=== PATIENT | female | born 1985 | race Caucasian/White ===

== ENCOUNTER 2018-09-24 09:05 | Emergency (ER) | payer OTHER, MEDICAID, SELFPAY ==
[2018-09-24 09:32] VITALS: BP 147/85; PULSE 84; RESP 18; TEMP 36.1; O2SAT 96; BMI 56.5
--- NOTE | 2018-09-24 10:35 | DI.CT.S_ITS ---
PROCEDURE: CT KIDNEY URETER BLADDER (KUB) INDICATIONS: abd pain TECHNIQUE: Noncontrast 5 mm thick sections acquired from the diaphragms to the symphysis. 5 mm thick coronal and sagittal reformats were then performed. For radiation dose reduction, the following was used: automated exposure control, adjustment of mA and/or kV according to patient size. COMPARISON: None. FINDINGS: Image quality: Excellent. Lung bases: Lung bases are clear. Heart size is normal. Urinary system: Both kidneys are normal in size. Faint 1-2 mm calcifications are seen in the region of midpole left kidney which may represent tiny nonobstructing stones. Small left peripelvic cyst is seen. No hydronephrosis or perinephric fat stranding. Both ureters appear non-dilated throughout their expected courses. Bladder wall thickness is normal; no calcified bladder stones. Other solid organs: Liver is normal in size. Tiny 4 mm hypodense area is noted in lateral aspect of right hepatic dome. Mild hepatic steatosis is seen. Gallbladder is within normal limits. Pancreas is normal in contours. Spleen is normal in size. No adrenal nodules. Peritoneum and bowel: Unenhanced bowel loops demonstrate normal wall thickness and caliber. No free fluid or air. Nodes and vessels: No retroperitoneal or mesenteric adenopathy by size criteria. Aorta and inferior vena cava are normal in caliber. Abdominal wall: No ventral hernias. Pelvis: No free pelvic fluid. No inguinal hernias or adenopathy. Bones: No suspicious bony lesions. No vertebral body compression fractures. IMPRESSION: 1. No obstructing renal stone hydronephrosis. Faint 1-2 mm tiny nonobstructing stones are seen in mid pole left kidney. Small left peripelvic renal cyst. Normal appearing urinary bladder and visualized bilateral ureters. 2. No bowel obstruction. No free fluid or free air. No evidence of acute appendicitis. 3. Mild hepatic steatosis. Tiny 4 mm hypodensity involving right hepatic dome and is too small to characterize and likely represent benign cyst. Dictated by: Jin Elena M.D. on 09/24/2018 at 11:01 Approved by: Jin Elena M.D. on 09/24/2018 at 11:05
[2018-09-24 11:09] VITALS: BP 127/86; PULSE 74; RESP 18; O2SAT 100
--- NOTE | 2018-09-24 12:51 | ED.FEMALEGU ---
HPI - Female Genitourinary <KAMALJIT Spivey - Last Filed: 09/24/18 18:22> General Chief complaint: Urogenital-Female Stated complaint: severe lower back pain that wraps to groin Time Seen by Provider: 09/24/18 12:32 Source: patient Mode of arrival: ambulatory Limitations: no limitations History of Present Illness HPI Narrative: Patient presents with chief complaint of lower abdominal pain on her left side that radiates from her back around to her left groin. She states she has a history of kidney stones, and feels like this might be a kidney stone. She denies any nausea, vomiting, diarrhea, fevers, dysuria urgency or frequency. She states she did pass a stone upon arrival to the emergency department. She that burned when she Peed out the stone. She denies any other abdominal pain or cramping. She denies any shortness of breath or chest pain. She denies any vaginal complaints including vaginal discharge. Related Data Home Medications Medication Instructions Recorded Confirmed duloxetine 1 cap PO QPM 09/24/18 09/24/18 ibuprofen 1 dose PO PRN PRN 09/24/18 09/24/18 methocarbamol 2 tab PO DAILY 09/24/18 09/24/18 Previous Rx's Medication Instructions Recorded acetaminophen-codeine 1 tab PO Q4-6H PRN #10 tab 09/24/18 ondansetron HCl 4 mg PO TID-QID PRN #20 tab 09/24/18 Allergies Allergy/AdvReac Type Severity Reaction Status Date / Time shellfish derived Allergy Verified 09/24/18 09:32 Review of Systems <KAMALJIT Spivey - Last Filed: 09/24/18 18:22> Review of Systems GENERAL: Denies chills, fatigue, malaise, fever, sweats. HEENT: Denies sinus pain, ear pain, sore throat, difficulty swallowing, dizziness. RESPIRATORY: Denies dyspnea, cough, wheezing, hemoptysis, sputum. CARDIOVASCULAR: Denies chest pain, palpitations, orthopnea, edema, GASTROINTESTINAL: see HPI : See HPI MUSCULOSKELETAL: denies weakness, joint pain, or bony pain SKIN: Denies rash, skin lesions, or other NEUROLOGIC: Denies weakness, headache, numbness, change in speech, confusion, seizures, incoordination. PSYCHIATRIC: No concerning psychosocial issues. 12 point review of systems is negative except for those stated above Exam <KAMALJIT Spivey - Last Filed: 09/24/18 18:22> Narrative Exam Narrative: GENERAL: Morbidly obese female lying on her side. HEAD: Atraumatic. Normocephalic. No temporal or scalp tenderness. EYES: Pupils equal round and reactive. Extraocular motions intact. No scleral icterus. No injection or drainage. ENT: Nose without bleeding, purulent drainage or septal hematoma. Throat without erythema, tonsillar hypertrophy or exudate. Uvula midline. Airway patent. NECK: Trachea midline. No JVD or lymphadenopathy. Supple, nontender, no meningeal signs. CARDIOVASCULAR: Regular rate and rhythm without murmurs, gallops, or rubs. RESPIRATORY: Clear to auscultation. Breath sounds equal bilaterally. No wheezes, rales, or rhonchi. GASTROINTESTINAL: Abdomen obese, pain to palpation left lower quadrant., nondistended. No hepato-splenomegaly, or palpable masses. No guarding. Active bowel sounds. EXTREMITIES: No clubbing, cyanosis, or edema. No joint tenderness, effusion, or edema noted. BACK: Nontender without deformity or crepitance. CVA tenderness left flank. NEURO: AOx3. SKIN: No rash or erythema. Initial Vital Signs Initial Vital Signs: Vital Signs Temperature 97.0 F L 09/24/18 09:32 Pulse Rate 84 09/24/18 09:32 Respiratory Rate 18 09/24/18 09:32 Blood Pressure 147/85 H 09/24/18 09:32 Pulse Oximetry 96 09/24/18 09:32 <Deena Castro DO - Last Filed: 09/24/18 19:32> Initial Vital Signs Initial Vital Signs: Vital Signs Temperature 97.0 F L 09/24/18 09:32 Pulse Rate 84 09/24/18 09:32 Respiratory Rate 18 09/24/18 09:32 Blood Pressure 147/85 H 09/24/18 09:32 Pulse Oximetry 96 09/24/18 09:32 Course <KAMALJIT Spivey - Last Filed: 09/24/18 18:22> Orders Ordered: ED Orders 09/24/18 10:35 CT kidney ureter bladder (KUB) Stat 09/24/18 13:20 Complete Blood Count AUTO DIFF Stat Comprehensive Metabolic Panel Stat Discontinued Medications Sodium Chloride (Normal Saline 0.9%) 1,000 mls @ 1,000 mls/hr IV BOLUS ONE Stop: 09/24/18 13:38 Last Infusion: 09/24/18 14:07 Dose: 0 mls/hr Infusion: 09/24/18 14:03 Dose: 1,000 mls/hr Admin: 09/24/18 13:17 Dose: 1,000 mls/hr Ketorolac Tromethamine (Toradol) 30 mg IV NOW ONE Stop: 09/24/18 12:40 Last Admin: 09/24/18 13:17 Dose: 30 mg Ondansetron HCl (Zofran) 4 mg IV NOW ONE Stop: 09/24/18 12:40 Last Admin: 09/24/18 13:17 Dose: 4 mg Reevaluation(s) Reevaluation #1: I met with the patient. I discussed various etiologies of lower abdominal pain including ovarian cyst, ovarian torsion, cutter. Patient does not want to workup any other etiologies at this point states that her pain is likely from the kidney stone that she heard the past. Given her history, I tend to agree with her. We discussed at length coming back to emergency department for worsening or no improvement. Time: 12:45 Reevaluation #2: Patient states her pain and nausea is much improved. She declines any further pain medications at this point. We discussed discharge if her lab work came back normal. Discussed at length follow up with primary care provider. Time: 13:30 Vital Signs - 8 hr 09/24/18 13:13 09/24/18 14:00 09/24/18 14:07 Pulse Rate 78 79 79 Respiratory Rate 16 15 Blood Pressure 148/84 H Blood Pressure [Right Arm] 132/73 149/84 H Pulse Oximetry 100 100 100 <Deena Castro, DO - Last Filed: 09/24/18 19:32> Orders Ordered: ED Orders 09/24/18 10:35 CT kidney ureter bladder (KUB) Stat 09/24/18 13:20 Complete Blood Count AUTO DIFF Stat Comprehensive Metabolic Panel Stat Discontinued Medications Sodium Chloride (Normal Saline 0.9%) 1,000 mls @ 1,000 mls/hr IV BOLUS ONE Stop: 09/24/18 13:38 Last Infusion: 09/24/18 14:07 Dose: 0 mls/hr Infusion: 09/24/18 14:03 Dose: 1,000 mls/hr Admin: 09/24/18 13:17 Dose: 1,000 mls/hr Ketorolac Tromethamine (Toradol) 30 mg IV NOW ONE Stop: 09/24/18 12:40 Last Admin: 09/24/18 13:17 Dose: 30 mg Ondansetron HCl (Zofran) 4 mg IV NOW ONE Stop: 09/24/18 12:40 Last Admin: 09/24/18 13:17 Dose: 4 mg Vital Signs - 8 hr 09/24/18 13:13 09/24/18 14:00 09/24/18 14:07 Pulse Rate 78 79 79 Respiratory Rate 16 15 Blood Pressure 148/84 H Blood Pressure [Right Arm] 132/73 149/84 H Pulse Oximetry 100 100 100 MDM - Female Genitourinary <PHILIP Spivey- - Last Filed: 09/24/18 18:22> Lab Data Result diagrams: 09/24/18 13:20 09/24/18 13:20 Lab Results 09/24/18 09/24/18 Range/Units 13:20 13:20 WBC 11.0 (4.5-11.0) X10^3/uL RBC 5.01 (4.0-5.2) X10^6/uL Hgb 13.2 (12.0-16.0) g/dL Hct 40.8 (36-46) % MCV 81.4 (80-100) fL MCH 26.4 (26-34) PG MCHC 32.4 (30-36) % RDW 16.8 H (11.6-14.8) % Plt Count 328 (150-400) X10^3/uL Neut % (Auto) 61.8 (50-75) % Lymph % (Auto) 25.7 (25-40) % [place] % (Auto) 5.4 (3-14) % Eos % (Auto) 6.3 H (2-4) % Baso % (Auto) 0.8 (0-2) % Neut # (Auto) 6800 H (8629-5037) /uL Sodium 141 (137-145) mmol/L Potassium 4.4 (3.4-5.1) mmol/L Chloride 101 (98-107) mmol/L Carbon Dioxide 29 (22-32) mmol/L BUN 14 (7-17) mg/dL Creatinine 0.60 (0.52-1.04) mg/dL Estimated GFR > 60.0 (>60) mL/min BUN/Creatinine Ratio 23.3 H (6-22) Glucose 83 (70-100) mg/dL Calcium 9.2 (8.4-10.2) mg/dL Total Bilirubin 0.5 (0.2-1.3) mg/dL AST 18 (14-36) IU/L ALT 33 (9-52) IU/L Alkaline Phosphatase 58 (38-126) U/L Total Protein 7.7 (6.3-8.2) g/dL Albumin 4.4 (3.5-5.0) g/dL Globulin 3.3 (1.7-4.1) g/dL Albumin/Globulin Ratio 1.3 (1.0-2.8) Point of Care Testing Test Results Negative Urine Dip Bedside Urine Glucose Negative Bedside Urine Bilirubin - Negative Bedside Urine Ketone - Negative Urine Specific [place] 1.030 Bedside Urine Occult Blood - Negative Bedside Urine pH 6.0 Bedside Urine Protein +/- 15 Bedside Urine Urobilinogen - Negative Bedside Urine Nitrite - Negative Bedside Urine Leukocytes - Negative Esterase Imaging Data CT scan - abdomen: Radiologist's impression: [place] [address] CT Scan Report Signed Patient: BARBIE FREDERICK#: [id number] : 1985Acct:[id number] Age/Sex: 32 / FDate of Service: 09/24/18 Loc: ED Accession Number: [id number] Procedure: CT kidney ureter bladder (KUB) Ordering Provider: Deena Castro D.O. PROCEDURE: CT KIDNEY URETER BLADDER (KUB) INDICATIONS: abd pain TECHNIQUE: Noncontrast 5 mm thick sections acquired from the diaphragms to the symphysis. 5 mm thick coronal and sagittal reformats were then performed. For radiation dose reduction, the following was used: automated exposure control, adjustment of mA and/or kV according to patient size. COMPARISON: None. FINDINGS: Image quality: Excellent. Lung bases: Lung bases are clear. Heart size is normal. Urinary system: Both kidneys are normal in size. Faint 1-2 mm calcifications are seen in the region of midpole left kidney which may represent tiny nonobstructing stones. Small left peripelvic cyst is seen. No hydronephrosis or perinephric fat stranding. Both ureters appear non-dilated throughout their expected courses. Bladder wall thickness is normal; no calcified bladder stones. Other solid organs: Liver is normal in size. Tiny 4 mm hypodense area is noted in lateral aspect of right hepatic dome. Mild hepatic steatosis is seen. Gallbladder is within normal limits. Pancreas is normal in contours. Spleen is normal in size. No adrenal nodules. Peritoneum and bowel: Unenhanced bowel loops demonstrate normal wall thickness and caliber. No free fluid or air. Nodes and vessels: No retroperitoneal or mesenteric adenopathy by size criteria. Aorta and inferior vena cava are normal in caliber. Abdominal wall: No ventral hernias. Pelvis: No free pelvic fluid. No inguinal hernias or adenopathy. Bones: No suspicious bony lesions. No vertebral body compression fractures. IMPRESSION: 1. No obstructing renal stone hydronephrosis. Faint 1-2 mm tiny nonobstructing stones are seen in mid pole left kidney. Small left peripelvic renal cyst. Normal appearing urinary bladder and visualized bilateral ureters. 2. No bowel obstruction. No free fluid or free air. No evidence of acute appendicitis. 3. Mild hepatic steatosis. Tiny 4 mm hypodensity involving right hepatic dome and is too small to characterize and likely represent benign cyst. Dictated by: Jin Elena M.D. on 09/24/2018 at 11:01 Approved by: Jin Elena M.D. on 09/24/2018 at 11:05 [facility] Narrative Medical decision making narrative: Patient presents with flank and groin pain consistent with her previous kidney stones. She is found have a kidney stone on CT and passed 1 in the emergency department. She was treated with Toradol in the emergency department. I gave her prescription of Tylenol with codeine as she has tolerated this well in the past as well as prescription for Zofran. She declined any other further workup today. I discussed at length monitoring for worsening or any other acute findings. Patient questions or concerns upon discharge. <Deena Castro DO - Last Filed: 09/24/18 19:32> Lab Data Lab Results 09/24/18 09/24/18 Range/Units 13:20 13:20 WBC 11.0 (4.5-11.0) X10^3/uL RBC 5.01 (4.0-5.2) X10^6/uL Hgb 13.2 (12.0-16.0) g/dL Hct 40.8 (36-46) % MCV 81.4 (80-100) fL MCH 26.4 (26-34) PG MCHC 32.4 (30-36) % RDW 16.8 H (11.6-14.8) % Plt Count 328 (150-400) X10^3/uL Neut % (Auto) 61.8 (50-75) % Lymph % (Auto) 25.7 (25-40) % [place] % (Auto) 5.4 (3-14) % Eos % (Auto) 6.3 H (2-4) % Baso % (Auto) 0.8 (0-2) % Neut # (Auto) 6800 H (8465-4781) /uL Sodium 141 (137-145) mmol/L Potassium 4.4 (3.4-5.1) mmol/L Chloride 101 (98-107) mmol/L Carbon Dioxide 29 (22-32) mmol/L BUN 14 (7-17) mg/dL Creatinine 0.60 (0.52-1.04) mg/dL Estimated GFR > 60.0 (>60) mL/min BUN/Creatinine Ratio 23.3 H (6-22) Glucose 83 (70-100) mg/dL Calcium 9.2 (8.4-10.2) mg/dL Total Bilirubin 0.5 (0.2-1.3) mg/dL AST 18 (14-36) IU/L ALT 33 (9-52) IU/L Alkaline Phosphatase 58 (38-126) U/L Total Protein 7.7 (6.3-8.2) g/dL Albumin 4.4 (3.5-5.0) g/dL Globulin 3.3 (1.7-4.1) g/dL Albumin/Globulin Ratio 1.3 (1.0-2.8) Point of Care Testing Test Results Negative Urine Dip Bedside Urine Glucose Negative Bedside Urine Bilirubin - Negative Bedside Urine Ketone - Negative Urine Specific [place] 1.030 Bedside Urine Occult Blood - Negative Bedside Urine pH 6.0 Bedside Urine Protein +/- 15 Bedside Urine Urobilinogen - Negative Bedside Urine Nitrite - Negative Bedside Urine Leukocytes - Negative Esterase Discharge Plan Departure Patient Disposition: Home Clinical Impression: Kidney stones Discharge Date/Time: 09/24/18 14:08 Interventions: ED Discharge Assessment Last Done: 09/24/18 14:07 Instructions: Kidney Stones (Alternative Therapy), DI for Kidney Stones Activity Restrictions/Additional Instructions: You passed her kidney stone in the emergency department today. I am giving you a prescription of nausea medication as well as pain medication. I would like you to follow up with primary care physician. I have given you a printout of primary care physicians that are most recently taking new patients. Come back to the emergency department if needed. Prescriptions: New ondansetron HCl 4 mg tablet 4 mg PO TID-QID PRN (Reason: nausea and vomiting) Qty: 20 RF: 0 acetaminophen-codeine 300-15 mg tablet 1 tab PO Q4-6H PRN (Reason: pain) Qty: 10 RF: 0 No Action methocarbamol 500 mg tablet 2 tab PO DAILY RF: 0 ibuprofen 200 mg Tablet 1 dose PO PRN PRN (Reason: pain) RF: 0 duloxetine 60 mg capsule,delayed release(DR/EC) 1 cap PO QPM RF: 0 <Deena Castro DO - Last Filed: 09/24/18 19:32> Cosign ED Attending Cosignature Attestation: I was immediately available in the department for consultation. This documentation has been reviewed and I agree with assessment and plan. Supervised by Deena Castro DO
--- NOTE | 2018-09-24 12:57 | ED_ITS ---
HPI - Female Genitourinary <KAMALJIT Spivey - Last Filed: 09/24/18 18:22> General Chief complaint: Urogenital-Female Stated complaint: severe lower back pain that wraps to groin Time Seen by Provider: 09/24/18 12:32 Source: patient Mode of arrival: ambulatory Limitations: no limitations History of Present Illness HPI Narrative: Patient presents with chief complaint of lower abdominal pain on her left side that radiates from her back around to her left groin. She states she has a history of kidney stones, and feels like this might be a kidney stone. She denies any nausea, vomiting, diarrhea, fevers, dysuria urgency or frequency. She states she did pass a stone upon arrival to the emergency department. She that burned when she Peed out the stone. She denies any other abdominal pain or cramping. She denies any shortness of breath or chest pain. She denies any vaginal complaints including vaginal discharge. Related Data Home Medications Medication Instructions Recorded Confirmed duloxetine 1 cap PO QPM 09/24/18 09/24/18 ibuprofen 1 dose PO PRN PRN 09/24/18 09/24/18 methocarbamol 2 tab PO DAILY 09/24/18 09/24/18 Previous Rx's Medication Instructions Recorded acetaminophen-codeine 1 tab PO Q4-6H PRN #10 tab 09/24/18 ondansetron HCl 4 mg PO TID-QID PRN #20 tab 09/24/18 Allergies Allergy/AdvReac Type Severity Reaction Status Date / Time shellfish derived Allergy Verified 09/24/18 09:32 Review of Systems <KAMALJIT Spivey - Last Filed: 09/24/18 18:22> Review of Systems GENERAL: Denies chills, fatigue, malaise, fever, sweats. HEENT: Denies sinus pain, ear pain, sore throat, difficulty swallowing, dizziness. RESPIRATORY: Denies dyspnea, cough, wheezing, hemoptysis, sputum. CARDIOVASCULAR: Denies chest pain, palpitations, orthopnea, edema, GASTROINTESTINAL: see HPI : See HPI MUSCULOSKELETAL: denies weakness, joint pain, or bony pain SKIN: Denies rash, skin lesions, or other NEUROLOGIC: Denies weakness, headache, numbness, change in speech, confusion, seizures, incoordination. PSYCHIATRIC: No concerning psychosocial issues. 12 point review of systems is negative except for those stated above Exam <KAMALJIT Spivey - Last Filed: 09/24/18 18:22> Narrative Exam Narrative: GENERAL: Morbidly obese female lying on her side. HEAD: Atraumatic. Normocephalic. No temporal or scalp tenderness. EYES: Pupils equal round and reactive. Extraocular motions intact. No scleral icterus. No injection or drainage. ENT: Nose without bleeding, purulent drainage or septal hematoma. Throat without erythema, tonsillar hypertrophy or exudate. Uvula midline. Airway patent. NECK: Trachea midline. No JVD or lymphadenopathy. Supple, nontender, no meningeal signs. CARDIOVASCULAR: Regular rate and rhythm without murmurs, gallops, or rubs. RESPIRATORY: Clear to auscultation. Breath sounds equal bilaterally. No wheezes , rales, or rhonchi. GASTROINTESTINAL: Abdomen obese, pain to palpation left lower quadrant., nondistended. No hepato-splenomegaly, or palpable masses. No guarding. Active bowel sounds. EXTREMITIES: No clubbing, cyanosis, or edema. No joint tenderness, effusion, or edema noted. BACK: Nontender without deformity or crepitance. CVA tenderness left flank. NEURO: AOx3. SKIN: No rash or erythema. Initial Vital Signs Initial Vital Signs: Vital Signs Temperature 97.0 F L 09/24/18 09:32 Pulse Rate 84 09/24/18 09:32 Respiratory Rate 18 09/24/18 09:32 Blood Pressure 147/85 H 09/24/18 09:32 Pulse Oximetry 96 09/24/18 09:32 <Deena Castro DO - Last Filed: 09/24/18 19:32> Initial Vital Signs Initial Vital Signs: Vital Signs Temperature 97.0 F L 09/24/18 09:32 Pulse Rate 84 09/24/18 09:32 Respiratory Rate 18 09/24/18 09:32 Blood Pressure 147/85 H 09/24/18 09:32 Pulse Oximetry 96 09/24/18 09:32 Course <KAMALJIT Spivey - Last Filed: 09/24/18 18:22> Orders Ordered: ED Orders 09/24/18 10:35 CT kidney ureter bladder (KUB) Stat 09/24/18 13:20 Complete Blood Count AUTO DIFF Stat Comprehensive Metabolic Panel Stat Discontinued Medications Sodium Chloride (Normal Saline 0.9%) 1,000 mls @ 1,000 mls/hr IV BOLUS ONE Stop: 09/24/18 13:38 Last Infusion: 09/24/18 14:07 Dose: 0 mls/hr Infusion: 09/24/18 14:03 Dose: 1,000 mls/hr Admin: 09/24/18 13:17 Dose: 1,000 mls/hr Ketorolac Tromethamine (Toradol) 30 mg IV NOW ONE Stop: 09/24/18 12:40 Last Admin: 09/24/18 13:17 Dose: 30 mg Ondansetron HCl (Zofran) 4 mg IV NOW ONE Stop: 09/24/18 12:40 Last Admin: 09/24/18 13:17 Dose: 4 mg Reevaluation(s) Reevaluation #1: I met with the patient. I discussed various etiologies of lower abdominal pain including ovarian cyst, ovarian torsion, cutter. Patient does not want to workup any other etiologies at this point states that her pain is likely from the kidney stone that she heard the past. Given her history, I tend to agree with her. We discussed at length coming back to emergency department for worsening or no improvement. Time: 12:45 Reevaluation #2: Patient states her pain and nausea is much improved. She declines any further pain medications at this point. We discussed discharge if her lab work came back normal. Discussed at length follow up with primary care provider. Time: 13:30 Vital Signs - 8 hr 09/24/18 13:13 09/24/18 14:00 09/24/18 14:07 Pulse Rate 78 79 79 Respiratory Rate 16 15 Blood Pressure 148/84 H Blood Pressure [Right Arm] 132/73 149/84 H Pulse Oximetry 100 100 100 <Deena Castro, DO - Last Filed: 09/24/18 19:32> Orders Ordered: ED Orders 09/24/18 10:35 CT kidney ureter bladder (KUB) Stat 09/24/18 13:20 Complete Blood Count AUTO DIFF Stat Comprehensive Metabolic Panel Stat Discontinued Medications Sodium Chloride (Normal Saline 0.9%) 1,000 mls @ 1,000 mls/hr IV BOLUS ONE Stop: 09/24/18 13:38 Last Infusion: 09/24/18 14:07 Dose: 0 mls/hr Infusion: 09/24/18 14:03 Dose: 1,000 mls/hr Admin: 09/24/18 13:17 Dose: 1,000 mls/hr Ketorolac Tromethamine (Toradol) 30 mg IV NOW ONE Stop: 09/24/18 12:40 Last Admin: 09/24/18 13:17 Dose: 30 mg Ondansetron HCl (Zofran) 4 mg IV NOW ONE Stop: 09/24/18 12:40 Last Admin: 09/24/18 13:17 Dose: 4 mg Vital Signs - 8 hr 09/24/18 13:13 09/24/18 14:00 09/24/18 14:07 Pulse Rate 78 79 79 Respiratory Rate 16 15 Blood Pressure 148/84 H Blood Pressure [Right Arm] 132/73 149/84 H Pulse Oximetry 100 100 100 MDM - Female Genitourinary <PHILIP Spivey- - Last Filed: 09/24/18 18:22> Lab Data Result diagrams: 09/24/18 13:20 09/24/18 13:20 Lab Results 09/24/18 09/24/18 Range/Units 13:20 13:20 WBC 11.0 (4.5-11.0) X10^3/uL RBC 5.01 (4.0-5.2) X10^6/uL Hgb 13.2 (12.0-16.0) g/dL Hct 40.8 (36-46) % MCV 81.4 (80-100) fL MCH 26.4 (26-34) PG MCHC 32.4 (30-36) % RDW 16.8 H (11.6-14.8) % Plt Count 328 (150-400) X10^3/uL Neut % (Auto) 61.8 (50-75) % Lymph % (Auto) 25.7 (25-40) % [place] % (Auto) 5.4 (3-14) % Eos % (Auto) 6.3 H (2-4) % Baso % (Auto) 0.8 (0-2) % Neut # (Auto) 6800 H (4656-1440) /uL Sodium 141 (137-145) mmol/L Potassium 4.4 (3.4-5.1) mmol/L Chloride 101 (98-107) mmol/L Carbon Dioxide 29 (22-32) mmol/L BUN 14 (7-17) mg/dL Creatinine 0.60 (0.52-1.04) mg/dL Estimated GFR > 60.0 (>60) mL/min BUN/Creatinine Ratio 23.3 H (6-22) Glucose 83 (70-100) mg/dL Calcium 9.2 (8.4-10.2) mg/dL Total Bilirubin 0.5 (0.2-1.3) mg/dL AST 18 (14-36) IU/L ALT 33 (9-52) IU/L Alkaline Phosphatase 58 (38-126) U/L Total Protein 7.7 (6.3-8.2) g/dL Albumin 4.4 (3.5-5.0) g/dL Globulin 3.3 (1.7-4.1) g/dL Albumin/Globulin Ratio 1.3 (1.0-2.8) Point of Care Testing Test Results Negative Urine Dip Bedside Urine Glucose Negative Bedside Urine Bilirubin - Negative Bedside Urine Ketone - Negative Urine Specific [place] 1.030 Bedside Urine Occult Blood - Negative Bedside Urine pH 6.0 Bedside Urine Protein +/- 15 Bedside Urine Urobilinogen - Negative Bedside Urine Nitrite - Negative Bedside Urine Leukocytes - Negative Esterase Imaging Data CT scan - abdomen: Radiologist's impression: [place] [address] CT Scan Report Signed Patient: BARBIE FREDERICK#: [id number] : 1985Acct:[id number] Age/Sex: 32 / FDate of Service: 09/24/18 Loc: ED Accession Number: [id number] Procedure: CT kidney ureter bladder (KUB) Ordering Provider: Deena Castro D.O. PROCEDURE: CT KIDNEY URETER BLADDER (KUB) INDICATIONS: abd pain TECHNIQUE: Noncontrast 5 mm thick sections acquired from the diaphragms to the symphysis. 5 mm thick coronal and sagittal reformats were then performed. For radiation dose reduction, the following was used: automated exposure control, adjustment of mA and/or kV according to patient size. COMPARISON: None. FINDINGS: Image quality: Excellent. Lung bases: Lung bases are clear. Heart size is normal. Urinary system: Both kidneys are normal in size. Faint 1-2 mm calcifications are seen in the region of midpole left kidney which may represent tiny nonobstructing stones. Small left peripelvic cyst is seen. No hydronephrosis or perinephric fat stranding. Both ureters appear non-dilated throughout their expected courses. Bladder wall thickness is normal; no calcified bladder stones. Other solid organs: Liver is normal in size. Tiny 4 mm hypodense area is noted in lateral aspect of right hepatic dome. Mild hepatic steatosis is seen. Gallbladder is within normal limits. Pancreas is normal in contours. Spleen is normal in size. No adrenal nodules. Peritoneum and bowel: Unenhanced bowel loops demonstrate normal wall thickness and caliber. No free fluid or air. Nodes and vessels: No retroperitoneal or mesenteric adenopathy by size criteria. Aorta and inferior vena cava are normal in caliber. Abdominal wall: No ventral hernias. Pelvis: No free pelvic fluid. No inguinal hernias or adenopathy. Bones: No suspicious bony lesions. No vertebral body compression fractures. IMPRESSION: 1. No obstructing renal stone hydronephrosis. Faint 1-2 mm tiny nonobstructing stones are seen in mid pole left kidney. Small left peripelvic renal cyst. Normal appearing urinary bladder and visualized bilateral ureters. 2. No bowel obstruction. No free fluid or free air. No evidence of acute appendicitis. 3. Mild hepatic steatosis. Tiny 4 mm hypodensity involving right hepatic dome and is too small to characterize and likely represent benign cyst. Dictated by: Jin Elena M.D. on 09/24/2018 at 11:01 Approved by: iJn Elena M.D. on 09/24/2018 at 11:05 [facility] Narrative Medical decision making narrative: Patient presents with flank and groin pain consistent with her previous kidney stones. She is found have a kidney stone on CT and passed 1 in the emergency department. She was treated with Toradol in the emergency department. I gave her prescription of Tylenol with codeine as she has tolerated this well in the past as well as prescription for Zofran. She declined any other further workup today. I discussed at length monitoring for worsening or any other acute findings. Patient questions or concerns upon discharge. <Deena Castro DO - Last Filed: 09/24/18 19:32> Lab Data Lab Results 09/24/18 09/24/18 Range/Units 13:20 13:20 WBC 11.0 (4.5-11.0) X10^3/uL RBC 5.01 (4.0-5.2) X10^6/uL Hgb 13.2 (12.0-16.0) g/dL Hct 40.8 (36-46) % MCV 81.4 (80-100) fL MCH 26.4 (26-34) PG MCHC 32.4 (30-36) % RDW 16.8 H (11.6-14.8) % Plt Count 328 (150-400) X10^3/uL Neut % (Auto) 61.8 (50-75) % Lymph % (Auto) 25.7 (25-40) % [place] % (Auto) 5.4 (3-14) % Eos % (Auto) 6.3 H (2-4) % Baso % (Auto) 0.8 (0-2) % Neut # (Auto) 6800 H (7156-2009) /uL Sodium 141 (137-145) mmol/L Potassium 4.4 (3.4-5.1) mmol/L Chloride 101 (98-107) mmol/L Carbon Dioxide 29 (22-32) mmol/L BUN 14 (7-17) mg/dL Creatinine 0.60 (0.52-1.04) mg/dL Estimated GFR > 60.0 (>60) mL/min BUN/Creatinine Ratio 23.3 H (6-22) Glucose 83 (70-100) mg/dL Calcium 9.2 (8.4-10.2) mg/dL Total Bilirubin 0.5 (0.2-1.3) mg/dL AST 18 (14-36) IU/L ALT 33 (9-52) IU/L Alkaline Phosphatase 58 (38-126) U/L Total Protein 7.7 (6.3-8.2) g/dL Albumin 4.4 (3.5-5.0) g/dL Globulin 3.3 (1.7-4.1) g/dL Albumin/Globulin Ratio 1.3 (1.0-2.8) Point of Care Testing Test Results Negative Urine Dip Bedside Urine Glucose Negative Bedside Urine Bilirubin - Negative Bedside Urine Ketone - Negative Urine Specific [place] 1.030 Bedside Urine Occult Blood - Negative Bedside Urine pH 6.0 Bedside Urine Protein +/- 15 Bedside Urine Urobilinogen - Negative Bedside Urine Nitrite - Negative Bedside Urine Leukocytes - Negative Esterase Discharge Plan Departure Patient Disposition: Home Clinical Impression: Kidney stones Discharge Date/Time: 09/24/18 14:08 Interventions: ED Discharge Assessment Last Done: 09/24/18 14:07 Instructions: Kidney Stones (Alternative Therapy), DI for Kidney Stones Activity Restrictions/Additional Instructions: You passed her kidney stone in the emergency department today. I am giving you a prescription of nausea medication as well as pain medication. I would like you to follow up with primary care physician. I have given you a printout of primary care physicians that are most recently taking new patients. Come back to the emergency department if needed. Prescriptions: New ondansetron HCl 4 mg tablet 4 mg PO TID-QID PRN (Reason: nausea and vomiting) Qty: 20 RF: 0 acetaminophen-codeine 300-15 mg tablet 1 tab PO Q4-6H PRN (Reason: pain) Qty: 10 RF: 0 No Action methocarbamol 500 mg tablet 2 tab PO DAILY RF: 0 ibuprofen 200 mg Tablet 1 dose PO PRN PRN (Reason: pain) RF: 0 duloxetine 60 mg capsule,delayed release(DR/EC) 1 cap PO QPM RF: 0 <Deena Castro DO - Last Filed: 09/24/18 19:32> Cosign ED Attending Cosignature Attestation: I was immediately available in the department for consultation. This documentation has been reviewed and I agree with assessment and plan. Supervised by Deena Castro DO
[2018-09-24 13:13] VITALS: BP 132/73; PULSE 78; RESP 16; O2SAT 100
[2018-09-24] MEDS: SODIUM CHLORIDE 0.9% 1,000 ML 1000 ML IV (13:17)
[2018-09-24] MEDS: ONDANSETRON 4 MG/2 ML INJ IV (13:17)
[2018-09-24] MEDS: KETOROLAC 60 MG/2 ML VIAL 30 MG IV (13:17)
[2018-09-24 13:34] LABS: Add Manual Diff / Slide Review NO; Basophils Percent Auto 0.8 % (0-2); Eosinophils Percent Auto 6.3 % (2-4); Hematocrit 40.8 % (36-46); Hemoglobin 13.2 g/dL (12.0-16.0); Lymphocytes Percent Auto 25.7 % (25-40); Mean Corpuscular HGB Conc 32.4 % (30-36); Mean Corpuscular Hemoglobin 26.4 PG (26-34); Mean Corpuscular Volume 81.4 fL (80-100); Monocytes Percent Auto 5.4 % (3-14); Neutrophils Absolute Auto 6800 /uL (3000-5900); Neutrophils Percent Auto 61.8 % (50-75); Platelet Count 328 X10^3/uL (150-400); Red Blood Cell Count 5.01 X10^6/uL (4.0-5.2); Red Cell Distribution Width 16.8 % (11.6-14.8)
[2018-09-24 13:43] LABS: Alanine Aminotransferase 33 IU/L (9-52); Albumin 4.4 g/dL (3.5-5.0); Albumin Globulin Ratio 1.3 (1.0-2.8); Alkaline Phosphatase 58 U/L (38-126); Aspartate Aminotransferase 18 IU/L (14-36); BUN Creatinine Ratio 23.3 (6-22); Bilirubin Total 0.5 mg/dL (0.2-1.3); Blood Urea Nitrogen 14 mg/dL (7-17); Calcium 9.2 mg/dL (8.4-10.2); Carbon Dioxide 29 mmol/L (22-32); Chloride 101 mmol/L (98-107); Estimated Glomerular Filt Rate > 60.0 mL/min (>60); Globulin 3.3 g/dL (1.7-4.1); Glucose 83 mg/dL (70-100); HEMOLYSIS < 15 (0-50); Potassium 4.4 mmol/L (3.4-5.1); Sodium 141 mmol/L (137-145); Total Protein 7.7 g/dL (6.3-8.2)
[2018-09-24 14:00] VITALS: BP 149/84; PULSE 79; RESP 15; O2SAT 100
[2018-09-24 14:07] VITALS: BP 148/84; PULSE 79; O2SAT 100
== END 2018-09-24 14:08 | disposition home or self-care (01) ==
PROVIDERS: Emergency Provider Nurse Practitioner Family
DX: N20.0 Calculus of kidney (principal)
CPT/HCPCS: 36591; 74176; 80053; 81003; 81025; 85025; 96361; 96374; 96375; 99283; 99284; J1885; J2405